=== PATIENT | male | born 1955 | race Caucasian/White ===

== ENCOUNTER → 2019-10-17 | Day surgery (SDC) | payer BC ==
[2019-10-16 10:48] LABS: BASOPHILS % 0.4 % (0.0-1.0); EOSINOPHILS # (AUTO) 0.1 (0.0-0.4); EOSINOPHILS % 1.9 % (0.0-6.0); HEMATOCRIT 42.5 % (38.2-49.6); LYMPHOCYTES # (AUTO) 1.5 (1.0-3.2); LYMPHOCYTES % 27.9 % (18.0-39.1); MEAN CORPUSCULAR HEMOGLOBIN 32.6 pg (28-32); MEAN CORPUSCULAR HGB CONC 32.9 g/dL (31-35); MEAN CORPUSCULAR VOLUME 98.8 fL (81-99); MONOCYTES # (AUTO) 0.6 (0.2-0.8); MONOCYTES % 10.6 % (4.4-11.3); NEUTROPHILS # (AUTO) 3.1 (2.1-6.9); NEUTROPHILS % 58.4 % (38.7-80.0); PLATELET COUNT 105 x10e3/uL (140-360); RED CELL DISTRIBUTION WIDTH 13.4 % (11.7-14.4)
[2019-10-16 10:59] LABS: INR 0.96; PROTHROMBIN TIME 13.4 seconds (11.9-14.5)
[2019-10-16 11:07] LABS: ALANINE AMINOTRANSFERASE 41 IU/L (0-55); ALBUMIN 4.1 g/dL (3.5-5.0); ALBUMIN/GLOBULIN RATIO 1.1 (0.8-2.0); ALKALINE PHOSPHATASE 129 IU/L (40-150); ANION GAP 13.5 mmol/L (8-16); BLOOD UREA NITROGEN 11 mg/dL (7-26); BUN/CREATININE RATIO 10 (6-25); CALCIUM 9.7 mg/dL (8.4-10.2); CARBON DIOXIDE 26 mmol/L (22-29); CHLORIDE 103 mmol/L (98-107); CREATININE, SERUM 1.09 mg/dL (0.72-1.25); EST GLOMERULAR FILTRATION RATE > 60 ML/MIN (60-); GLUCOSE 113 mg/dL (74-118); POTASSIUM 4.5 mmol/L (3.5-5.1); SODIUM 138 mmol/L (136-145)
[~2019-10-17] VITALS: Ht 182.9 cm; Wt 124.7 kg
[~2019-10-17] MED LIST: ATORVASTATIN CA10 MG PO; DILTIAZEM 24HR180 MG PO; FENTANYL CITRATE/PF 100MCG/2 ML INJ ONE; HEPARIN SOD (PORCINE) 1000 UNIT/ML 30ML ONE; HEPARIN SOD/SOD CHLORIDE 2,000 ML ONE; IOPAMIDOL 370 MG/ML 200 ML INFUS..BTL INJ ONE; LIDOCAINE HCL 2% LOCAL 20 ML VIAL ONE; LISINOPRIL10 MG PO; METFORMIN HCL1000 MG PO; MIDAZOLAM HCL 2 MG/2 ML VIAL ONE; NITROGLYCERIN/D5W 200 MCG/ML 250 ML ONE; OXCARBAZEPINE300 MG PO; SODIUM CHLORIDE 0.9% 1000ML 1,000 ML ONE; VERAPAMIL HCL 2.5 MG/ML 2 ML VIAL ONE
--- OUTSIDE RECORDS SUMMARY | 2019-10-17 09:14 | XMS REPORT ---
Author Author [facility] Address Unknown Phone Unavailable Care Team Providers Care Brand Lead Name Role Phone INDIO Christine TANA Unavailable Unavailable Payers Payer Name Policy Type Policy Number Effective Date Expiration Date Problems This patient has no known problems. Allergies, Adverse Reactions, Alerts Allergy Name Allergy Type Status Severity Reaction(s) Onset Date Inactive Date Treating Clinician Comments No Known Allergies DA Active U 2018-05-10 00:00:00 Medications This patient has no known medications. Results Test Description Test Time Test Comments Text Results Atomic Results Result Comments MR, ABDOMEN, WITH 2017-05-29 13:55:00 abnormal liver diagnostic imaging with small hypoechoic focus near gallbladder fossa Reason for Exam:->abnormal liver diagnostic imaging with small hypoechoic focus near gallbladder fossa FINAL REPORT TECHNIQUE: MRI of the abdomen WITHOUT and WITH intravenous contrast. INDICATION: 61-year-old man with abnormal imaging of the liver. COMPARISON: Abdomen ultrasound 02/08/2017. FINDINGS: LOWER THORAX: Unremarkable. LIVER: Decreased signal intensity of the liver on opposed phase imaging, consistent with hepatic steatosis. Areas of focal fatty sparing along the gallbladder fossa. No suspicious liver lesions.BILIARY: Subcentimeter cystic changes in the gallbladder fundal wall, likely adenomyomatosis. No cholelithiasis. No biliary ductal dilatation or filling defect.SPLEEN: Enlarged, measuring 14.6 cm in the craniocaudal dimension.PANCREAS: No focal masses or ductal dilatation. ADRENALS: No adrenal nodules.KIDNEYS/URETERS: No hydronephrosis or solid mass lesions. PERITONEUM/RETROPERITONEUM: No free fluid.LYMPH NODES: No lymphadenopathy.VESSELS: Portal system and hepatic veins are patent. Circumaortic left renal vein. Atherosclerotic disease throughout the abdominal aorta without aneurysm. GI TRACT: No distention or wall thickening. BONES AND SOFT TISSUES: Unremarkable. IMPRESSION:Hepatic steatosis with focal fatty sparing along the gallbladder fossa. No suspicious liver lesions. Splenomegaly. Signed: Alicia Brand MDReport Verified Date/Time: 05/29/2017 13:55:47 Reading Location: [facility] B1 C013Y CT Body Reading Room -CREATININE 2017-05-29 10:49:00 POC-CREATININE (BEAKER) (test todi=3350) 1.0 mg/dL 0.6-1.[address] [address] POC-EGFR (BEAKER) (test ncxl=2223) 76 mL/min/1.73M2 ANTI-NUCLEAR ANTIBODY (SARIKA)2017-02-03 15:01:00* Test Item Value Reference Range Comments ANTI-NUCLEAR ANTIBODY (SARIKA) (BEAKER) (test tafg=956) Negative Negative HEPATITIS B SURFACE [id number] 17:39:00* Test Item Value Reference Range Comments HEPATITIS B SURFACE ANTIGEN (2) (BEAKER) (test pguu=1150) Nonreactive Nonreactive HEPATITIS C [id number] 17:39:00* Test Item Value Reference Range Comments HEPATITIS C ANTIBODY (BEAKER) (test mwot=969) Nonreactive Nonreactive HEPATITIS B SURFACE [id number] 17:33:00* Test Item Value Reference Range Comments HEPATITIS B SURFACE ANTIBODY (BEAKER) (test zfll=130) < mIU/mL <8.0 HEPATITIS A ANTIBODY, [id number] 17:33:00* Test Item Value Reference Range Comments HEPATITIS A IGG ANTIBODY (BEAKER) (test ufdl=5137) Reactive Nonreactive HEPATITIS B CORE ANTIBODY, [id number] 17:32:00* Test Item Value Reference Range Comments HEPATITIS B CORE TOTAL ANTIBODY (BEAKER) (test gdnm=942) Nonreactive Nonreactive IRON, TIBC, % SAT. (WITHOUT FERRITIN)2017-02-01 17:08:00* Test Item Value Reference Range Comments IRON (BEAKER) (test lvrd=362) 112 ug/dL 40-160 TOTAL IRON BINDING CAPACITY (BEAKER) (test jfyy=761) 315 ug/dL 250-450 IRON % SATURATION (2) (BEAKER) (test ctsw=4962) 36 % 20-55 [id number] 15:47:00* Test Item Value Reference Range Comments FERRITIN (BEAKER) (test apxh=926) 653 ng/mL 5-275 Effective 07/15/2014: Reference Range ChangeNew: Male 5-275 Previous: Male 22-322 Female 5-275 Female 10-291 ALPHA FETOPROTEIN (AFP), TUMOR [id number] 15:47:00* Test Item Value Reference Range Comments ALPHA-FETOPROTEIN (BEAKER) (test yrhp=1533) 4.6 ng/mL <10.0 Effective 07/15/2014: Reference Range ChangeNew: <10.0 Previous: 0.0-8.0CBC W/PLT COUNT & AUTO [id number] 14:54:00* Test Item Value Reference Range Comments WHITE BLOOD CELL COUNT (BEAKER) (test ncdk=942) 5.8 K/ L 4.0-10.0 RED BLOOD CELL COUNT (BEAKER) (test kpwp=706) 4.57 M/ L 4.20-5.80 HEMOGLOBIN (BEAKER) (test gzqb=308) 15.4 GM/DL 13.0-16.8 HEMATOCRIT (BEAKER) (test vbvb=649) 47.5 % 40.0-50.0 MEAN CORPUSCULAR VOLUME (BEAKER) (test miov=161) 104.0 fL 82.0-98.0 MEAN CORPUSCULAR HEMOGLOBIN (BEAKER) (test bnwa=169) 33.7 pg 27.0-33.0 MEAN CORPUSCULAR HEMOGLOBIN CONC (BEAKER) (test bubp=411) 32.5 GM/DL 32.0-36.0 RED CELL DISTRIBUTION WIDTH (BEAKER) (test canz=541) 12.2 % 10.3-14.2 PLATELET COUNT (BEAKER) (test ebsn=653) 149 K/CU MM 150-430 MEAN PLATELET VOLUME (BEAKER) (test pxxf=885) 7.4 fL 6.5-10.5 NUCLEATED RED BLOOD CELLS (BEAKER) (test yacv=967) 0 /100 WBC 0-0 NEUTROPHILS RELATIVE PERCENT (BEAKER) (test duyt=838) 58 % LYMPHOCYTES RELATIVE PERCENT (BEAKER) (test xlgs=199) 31 % MONOCYTES RELATIVE PERCENT (BEAKER) (test dcgw=508) 9 % EOSINOPHILS RELATIVE PERCENT (BEAKER) (test uefn=366) 2 % BASOPHILS RELATIVE PERCENT (BEAKER) (test rzky=161) 0 % NEUTROPHILS ABSOLUTE COUNT (BEAKER) (test syid=145) 3.33 K/ L 1.80-8.00 LYMPHOCYTES ABSOLUTE COUNT (BEAKER) (test zmqt=318) 1.78 K/ L 1.48-4.50 MONOCYTES ABSOLUTE COUNT (BEAKER) (test pgnk=472) 0.50 K/ L 0.00-1.30 EOSINOPHILS ABSOLUTE COUNT (BEAKER) (test kkaz=729) 0.13 K/ L 0.00-0.50 BASOPHILS ABSOLUTE COUNT (BEAKER) (test qrzn=067) 0.01 K/ L 0.00-0.20 0.00COMPREHENSIVE METABOLIC [id number] 14:28:00* Test Item Value Reference Range Comments TOTAL PROTEIN (BEAKER) (test swue=093) 7.8 gm/dL 6.0-8.3 ALBUMIN (BEAKER) (test cipm=3171) 4.3 g/dL 3.5-5.0 ALKALINE PHOSPHATASE (BEAKER) (test apvq=734) 116 U/L 40-150 BILIRUBIN TOTAL (BEAKER) (test vfsh=132) 0.7 mg/dL 0.2-1.2 SODIUM (BEAKER) (test hfqi=366) 140 meq/L 136-145 POTASSIUM (BEAKER) (test ayyz=913) 4.3 meq/L 3.5-5.1 CHLORIDE (BEAKER) (test miuo=117) 105 meq/L 98-107 CO2 (BEAKER) (test qbwj=355) 24 meq/L 22-29 BLOOD UREA NITROGEN (BEAKER) (test geqf=357) 11 mg/dL 7-21 CREATININE (BEAKER) (test gsiv=847) 0.99 mg/dL 0.57-1.25 GLUCOSE RANDOM (BEAKER) (test ecxy=941) 78 mg/dL 70-105 CALCIUM (BEAKER) (test ohcf=866) 9.8 mg/dL 8.4-10.2 AST (SGOT) (BEAKER) (test rtrm=948) 55 U/L 5-34 ALT (SGPT) (BEAKER) (test kxya=566) 80 U/L 6-55 EGFR (BEAKER) (test iabn=2060) 77 mL/min/1.73 sq m ESTIMATED GFR IS NOT ACCURATE CREATININE CLEARANCE IN PREDICTING GLOMERULAR FILTRATION RATE. ESTIMATED GFR IS NOT APPLICABLE FOR DIALYSIS PATIENTS. BILIRUBIN, [id number] 14:28:00* Test Item Value Reference Range Comments BILIRUBIN DIRECT (BEAKER) (test nuuq=859) 0.2 mg/dL 0.1-0.5
[2019-10-17 10:15] VITALS: BP 156/80
--- NOTE | 2019-10-17 10:30 | NUR ---
Patient took oxcarbazepine with sip of water@1030.
[2019-10-17 13:45] VITALS: BP 157/89
--- NOTE | 2019-10-17 13:45 | NUR ---
1345p Received pt to room 10,bedside report received from KRISTEN Barnhart. Alert oriented and appropriate, PERRLA, respirations even and unlabored to room air. Pulses x4 extremities equal and strong. Pedal pulses PT/DP X4 and marked. Cap fill brisk < 3 sec. Tr band down at 1420p ds at 3pm. Skin warm and dry integrity appears D/I. IV 20g to left hand at 75cchr, presents healthy w/o s/s of infiltration or complaint. Abdomen soft and supple. pt offered toileting, denies need to urinate or defecate. No personal affects with patient. Family art bedside. Pt and family verbalizes understanding of POC. Currently w/o complaint of pain ds/rn
[2019-10-17 14:00] VITALS: BP 158/77
[2019-10-17 14:15] VITALS: BP 141/77
[2019-10-17 14:30] VITALS: BP 140/70
--- NOTE | 2019-10-17 14:30 | NUR ---
1430p RADIAL Compression removal: Initial Cuff volume 11cc 1430p -2cc Removed No hematoma/bleeding noted with normal neurovascular function. 1445p -4cc Removed No hematoma/ bleeding noted with normal neurovascular function. 1500p -5cc Removed No hematoma/bleeding noted with normal neurovascular function. Air removal completed. Stasis achieved sterile 2x2,Tegaderm, Coban dressing No hematoma, bleeding noted with normal neurovascular function. Wrist splint in place. Pt instructed on POC. Ds/Rn
[2019-10-17 15:00] VITALS: BP 140/77
--- NOTE | 2019-10-17 15:00 | NUR ---
1500p Pt meets DC criteria. Rt r band assessed for s/s of complication and presence of hematoma. Skin warm, dry, no discolor, and pulses present. IV removed from . Distal tip appears intact. VS WNL. Pt denies pain, sob, or need at this time. No family at bedside friend will arrive at 430pm for pickup. Review of discharge paperwork and follow up instructions. verbalized understanding. Pt to wheelchair and transported to front of hospital. Transferred to private vehicle under own strength w/o incident with DC paperwork in hand. - ds/rn
--- NOTE | 2019-10-17 19:47 | Operative Report ---
DATE OF PROCEDURE: 10/17/2019 SURGEON: Nick Weir DO PROCEDURES PERFORMED: 1. Conscious sedation, 30 minutes. 2. Selective coronary angiography x2. 3. Left heart catheterization. 4. Left ventriculography. PREPROCEDURE DIAGNOSIS: Abnormal stress test with chest pain. POSTPROCEDURE DIAGNOSIS: Multivessel coronary artery disease. ESTIMATED BLOOD LOSS: 20 mL. SPECIMENS REMOVED: None. PROCEDURE IN DETAIL: After informed consent was obtained, the patient was brought to the cardiac catheterization laboratory in the fasting and nonsedated state. Bilateral groins and right wrist were prepped and draped in usual sterile fashion. The patient received conscious sedation by co and monitored by the supervisor labor gang nurse. She monitored his physiologic status and his conscious state throughout the procedure for approximately 30 minutes. A 2% lidocaine was infiltrated over the right wrist for local anesthesia. Using micropuncture needle, the right radial artery was accessed via modified Seldinger technique and a 5-6 slender sheath was placed. Next, diagnostic coronary angiography and left heart catheterization was performed using a TIG and JR4 catheters. Left ventriculography was performed using a pigtail catheter. The patient tolerated the procedure well with no immediate complications and transferred back to his room in stable condition. PROCEDURAL FINDINGS: 1. Left main coronary artery is patent without significant disease. 2. The proximal portion of the LAD is calcified. There is a proximal 90% severe stenosis with a long diffuse tubular 70% stenosis proximally. The distal vessel is medium in caliber without significant disease. 3. Left circumflex coronary artery provides one medium caliber obtuse marginal vessel, which trifurcates in the distal portion. 4. The right coronary artery is chronically occluded proximally. The posterolateral branches and the posterior descending coronary artery receive collaterals from the right and left coronary systems. 5. Left ventricular end-diastolic pressure is 15 to 17 mmHg. No aortic valve gradient present upon pullback. 6. Left ventricular ejection fraction 60% to 65%. RECOMMENDATIONS: The patient was found to have multivessel coronary artery disease with a normal ejection fraction and history of diabetes. He will be referred for bypass surgery. Nick Weir DO BM/MODL /[id number]
== END | disposition home or self-care (01) ==
LOC: CATH LAB 09:11
PROVIDERS: ATTEND Internal Medicine Cardiovascular Disease
DX: I25.118 Atherosclerotic heart disease of native coronary artery with other forms of angina pectoris (principal); I10 Essential (primary) hypertension; E78.5 Hyperlipidemia, unspecified; I25.2 Old myocardial infarction; E13.69 Other specified diabetes mellitus with other specified complication; Z01.812 Encounter for preprocedural laboratory examination; Z79.84 Long term (current) use of oral hypoglycemic drugs; Z68.38 Body mass index [BMI] 38.0-38.9, adult; Z82.49 Family history of ischemic heart disease and other diseases of the circulatory system; Z83.3 Family history of diabetes mellitus
CPT/HCPCS: 36415 ×2; 80053; 82948; 85025; 85610; 93458; C1769; C1887; J1644; J2001; J2250; J3010; J7030; Q9967; 99152

== ENCOUNTER → 2021-07-01 | Day surgery (SDC) | payer BC ==
[2021-06-28 10:01] LABS: INR 1.2; PROTHROMBIN TIME 16.2 seconds (11.9-14.5)
[2021-06-28 10:11] LABS: ALBUMIN 3.8 g/dL (3.5-5.0); ALBUMIN/GLOBULIN RATIO 1.1 (0.8-2.0); ANION GAP 14.7 mmol/L (8-16); CALCIUM 8.5 mg/dL (8.4-10.2); CREATININE, SERUM 1.3 mg/dL (0.72-1.25); POTASSIUM 4.7 mmol/L (3.5-5.1)
[2021-06-28 12:58] LABS: BASOPHILS % 0.4 % (0.0-1.0); EOSINOPHILS # (AUTO) 0.1 (0.0-0.4); EOSINOPHILS % 1.6 % (0.0-6.0); HEMATOCRIT 28.1 % (38.2-49.6); HEMOGLOBIN 7.3 g/dL (14.0-18.0); LYMPHOCYTES # (AUTO) 1.8 (1.0-3.2); MEAN CORPUSCULAR HEMOGLOBIN 21.1 pg (28-32); MEAN CORPUSCULAR VOLUME 81.2 fL (81-99); MONOCYTES # (AUTO) 0.5 (0.2-0.8); MONOCYTES % 9.4 % (4.4-11.3); NEUTROPHILS # (AUTO) 3.1 (2.1-6.9); NEUTROPHILS % 56.2 % (38.7-80.0); PLATELET COUNT 135 x10e3/uL (140-360); RED BLOOD COUNT 3.46 x10e6/uL (4.3-5.7); RED CELL DISTRIBUTION WIDTH 19.5 % (11.7-14.4)
[~2021-07-01] VITALS: Ht 185.4 cm; Wt 136.1 kg
[~2021-07-01] MED LIST changes: +AMIODARONE HCL100 MG PO; +ASPIRIN EC81 MG PO; +BENZOCAINE 20% SPR 60 ML CAN ONE; +CLOPIDOGREL75 MG PO; +ELIQUIS5 MG PO; -HEPARIN SOD (PORCINE) 1000 UNIT/ML 30ML ONE; -HEPARIN SOD/SOD CHLORIDE 2,000 ML ONE; -IOPAMIDOL 370 MG/ML 200 ML INFUS..BTL INJ ONE; -LIDOCAINE HCL 2% LOCAL 20 ML VIAL ONE; +LIDOCAINE HCL 2% LOCAL INJ 5 ML SDV VIAL INJ ONE; +METOPROLOL TART50 MG PO; -NITROGLYCERIN/D5W 200 MCG/ML 250 ML ONE; +POVIDONE IODINE 0.05% 0.05 % ML PO ONE; +PROPOFOL IV EMULSION 10 MG/ML 20 ML VIAL ONE; -VERAPAMIL HCL 2.5 MG/ML 2 ML VIAL ONE
[2021-07-01 09:35] VITALS: BP 121/75
[2021-07-01 11:58] VITALS: BP 135/63
[2021-07-01 12:13] VITALS: BP 118/45
[2021-07-01 12:23] VITALS: BP 107/56
== END | disposition home or self-care (01) ==
LOC: OR 08:00
PROVIDERS: ATTEND Internal Medicine Cardiovascular Disease
DX: I48.91 Unspecified atrial fibrillation (principal); I70.0 Atherosclerosis of aorta; I07.1 Rheumatic tricuspid insufficiency; G47.33 Obstructive sleep apnea (adult) (pediatric); I10 Essential (primary) hypertension; E78.5 Hyperlipidemia, unspecified; R56.9 Unspecified convulsions; R06.09 Other forms of dyspnea; E11.9 Type 2 diabetes mellitus without complications; E66.01 Morbid (severe) obesity due to excess calories; I25.810 Atherosclerosis of coronary artery bypass graft(s) without angina pectoris; Z01.812 Encounter for preprocedural laboratory examination; Z20.822 Contact with and (suspected) exposure to COVID-19; Z79.02 Long term (current) use of antithrombotics/antiplatelets; Z79.82 Long term (current) use of aspirin; Z79.84 Long term (current) use of oral hypoglycemic drugs; Z79.899 Other long term (current) drug therapy; Z95.1 Presence of aortocoronary bypass graft; Z98.61 Coronary angioplasty status
CPT/HCPCS: 36415 ×2; 80053; 82948; 85025; 85610; 93312; 93320; 93325; J2001; J2250; J2704; J3010; J7030; U0002; 93307